=== PATIENT | female | born 1970 | race American Indian/Alaskan Native ===

== ENCOUNTER 2016-12-05 23:46 | Emergency (ER) | payer SELFPAY ==
[2016-12-06] MEDS ORDERED: FLEXERIL PO ONE (00:52)
[2016-12-06] MEDS ORDERED: TORADOL IM ONE (00:53)
--- NOTE | 2016-12-06 01:12 | Emergency Department Report ---
HPI - General Chief Complaint: Extremity Injury, Upper Time Seen by Provider: 12/06/16 00:52 - HPI HPI: Patient is a 46-year-old female presents to ED complaining of right-sided neck and shoulder pain that's been going on intermittently for the past year. Patient states she normally goes to a clinic that injects shot into her shoulder joint. Patient states for the past couple of days she didn't have in this pain in her shoulder is worsened with certain movements and raised arm. She denies fevers/chills/nausea/vomiting/abdominal pain/chest pain/shortness of breath or any other Problems ED Past Medical Hx - Medications Home Medications: Home Medications Medication Instructions Recorded Confirmed Last Taken Type Cyclobenzaprine [Flexeril 10 MG 10 mg PO QHS #20 tablet 12/06/16 Unknown Rx TAB] Naproxen [Naprosyn] 500 mg PO BID #30 tablet 12/06/16 Unknown Rx ED Review of Systems ROS: Stated complaint: RT SHOULDER/NECK PAIN Other details as noted in HPI Constitutional: denies: chills, fever Eyes: denies: eye pain, eye discharge, vision change ENT: denies: ear pain, throat pain Respiratory: denies: cough, shortness of breath, wheezing Cardiovascular: denies: chest pain, palpitations Endocrine: no symptoms reported Gastrointestinal: denies: abdominal pain, nausea, diarrhea Genitourinary: denies: urgency, dysuria, discharge Musculoskeletal: denies: back pain, joint swelling, arthralgia Skin: denies: rash, lesions Neurological: denies: headache, weakness, paresthesias Psychiatric: denies: anxiety, depression Hematological/Lymphatic: denies: easy bleeding, easy bruising Physical Exam - Physical Exam Vital Signs: Vital Signs 12/05/16 23:53 Temperature 98.8 F Pulse Rate 79 Blood Pressure 153/95 O2 Sat by Pulse 100 Oximetry Physical Exam: GENERAL: Alert and oriented x3, no apparent distress, Normal Gait, atraumatic. NECK: Supple. Non edematous, No carotid bruits. No lymphadenopathy or thyromegaly. No C-spine tenderness. Full range of motion of the neck LUNGS: Symetrical with respiration, No wheezing, no rales or crackles, CTAB. HEART: S1, S2 present, regular rate and rhythm without murmur, no rubs, no gallops. EXTREMITIES/MUSCULOSKELETAL: No cyanosis, clubbing, rash, lesions or edema. Full ROM bilaterally. UE/LE Pulses 2+ bilaterally. LE and UE 5+ strength bilaterally, shoulder joint is intact. Mild tenderness to palpation of the anterior and posterior shoulder joint region. No ecchymosis and no swelling no erythema. NEUROLOGIC: The patient is cooperative with no focal neurologic deficits. Cranial nerves II through XII are grossly intact. Normal speech. Normal sensation in bilateral upper extremities, No loss of sensation, . SKIN: Warm and dry, No lesions, No ulceration or induration present. ED Course Vital Signs 12/05/16 23:53 Temperature 98.8 F Pulse Rate 79 Blood Pressure 153/95 O2 Sat by Pulse 100 Oximetry ED Medical Decision Making - Medical Decision Making 46-year-old female presents to ED with arthralgia of the right shoulder ED course: Patient received Toradol and Flexeril in ED. Discussed the patient follow up with her primary care physician is evident. Discussed with patient Flexeril is drowsy and should only take while at home and not to take while operating a motor vehicle or machinery Discussed follow-up with referrals as given. Vital signs normal patient is in no acute distress Discussed with patient if any worsening or new symptoms to return to ED Patient understands instructions that were given will follow-up Critical care attestation.: If time is entered above; I have spent that time in minutes in the direct care of this critically ill patient, excluding procedure time. ED Disposition Clinical Impression: Shoulder arthralgia Qualifiers: Laterality: right Qualified Code(s): M25.511 - Pain in right shoulder Chronic shoulder pain Qualifiers: Laterality: right Qualified Code(s): M25.511 - Pain in right shoulder; G89.29 - Other chronic pain Disposition: DC- TO HOME OR SELFCARE Is pt being admited?: No Does the pt Need Aspirin: No Condition: Stable Instructions: Arthralgia (ED), Shoulder Sprain (ED) Prescriptions: Cyclobenzaprine [Flexeril 10 MG TAB] 10 mg PO QHS #20 tablet Naproxen [Naprosyn] 500 mg PO BID #30 tablet Referrals: AVILA IRWIN MD [Primary Care Provider] - 3-5 Days QIANA MTZ MD [Referring] - 3-5 Days [facility] [Outside] - 3-[address] [facility] [Outside] - 3-5 Days MARLA VELASCO MD [Staff Physician] - 3-5 Days IBIS BELCHER MD [Referring] - 3-5 Days Forms: Accompanied Note, Work/School Release Form(ED) Time of Disposition: 01:30
[2016-12-06] MEDS ORDERED: TORADOL ONE (01:13)
[2016-12-06 01:50] VITALS: BP 137/84
== END 2016-12-06 01:50 | disposition home or self-care (01) ==
LOC: ED 23:46
DX: M25.511 Pain in right shoulder (principal); G89.29 Other chronic pain
CPT/HCPCS: 96372; 99282; J1885